=== PATIENT | female | born 1990 | race Asian ===

== ENCOUNTER 2016-09-02 06:20 | Day surgery (SDC) | payer BC ==
[~2016-09-02] VITALS: Ht 165.1 cm; Wt 61.2 kg
[2016-09-02] VITALS (11 sets, daily range): BP systolic 90–109; BP diastolic 50–68
[~2016-09-02 06:20] MED LIST: AMITIZA24 MCG ORAL
[2016-09-02] MEDS ORDERED: LR 1000ml 1,000 ML IV SCH (07:25)
--- NOTE | 2016-09-02 08:07 | Pre-Procedure Note/Attestation ---
Pre-Procedure Note/Attestation Complete Prior to Procedure Planned Procedure: not applicable Procedure Narrative: esophagogastroduodenoscopy colon , Indications for Procedure Pre-Operative Diagnosis: abd pain Attestation I attest that I discussed the nature of the procedure; its benefits; risks and complications; and alternatives (and the risks and benefits of such alternatives ), prior to the procedure, with the patient (or the patient's legal roofing sales representative). I attest that, if there was a reasonable possibility of needing a blood transfusion, the patient (or the patient's legal roofing sales representative) was given the [facility] standardized written summary, pursuant to the [place] Blood Safety Act ([place] Health and Safety Code # 1645, as amended). I attest that I re-evaluated the patient just prior to the surgery and that there has been no change in the patient's H&P, except as documented below: JAMEL JALLOH Sep 02, 2016 08:07
--- NOTE | 2016-09-02 08:08 | Short Stay Surgery H&P ---
History of Present Illness History of Present Illness Chief Complaint see H&P HPI Stacy Fry is a 25 year old female who was admitted on for Abdominal Pain Patient History Allergies: Coded Allergies: Dust (Verified Allergy, Mild, 09/02/16) SNEEZING Uncoded Allergies: CATS (Allergy, Mild, 09/02/16) ITCHING,SNEEZING PAST MEDICAL HISTORY: Past Surgeries: Social History: Medication History Scheduled Lubiprostone (Amitiza*), 24 MCG ORAL BID, (Reported) Physical Exam Vital Signs Last Vital Signs Date Time Temp Pulse Resp B/P Pulse Ox O2 Delivery O2 Flow Rate FiO2 09/02/16 07:15 97.3 46 20 103/62 99 Room Air Labs Laboratory Tests Test 09/02/16 06:40 Urine HCG, Qualitative Negative Plan Attestation Are the patient's medical conditions optimized for surgery? JAMEL JALLOH Sep 02, 2016 08:08
--- NOTE | 2016-09-02 09:00 | Immediate Post-Op Evaluation ---
Immediate Post-Op Evalulation Immediate Post-Op Evalulation Procedure: EGD/Colonoscopy Date of Evaluation: Sep 02, 2016 Time of Evaluation: 08:50 IV Fluids: 500 Blood Pressure Systolic: 120 Blood Pressure Diastolic: 50 Pulse Rate: 58 Respiratory Rate: 14 O2 Sat by Pulse Oximetry: 100 Temperature (Fahrenheit): 97.4 Nausea: No Vomiting: No Complications none Patient Status: awake, reacts, patent Hydration Status: adequate - none Drug: none BRAD COTTO CRNA Sep 02, 2016 09:00
--- NOTE | 2016-09-02 09:01 | Anethesia Preoperative Eval ---
Anesthesia Pre-op PMH/ROS General Date of Evaluation: Sep 02, 2016 Time of Evaluation: 08:00 Anesthesiologist: tony ASA Score: ASA 2 Mallampati Score Class I : Soft palate, uvula, fauces, pillars visible Class II: Soft palate, uvula, fauces visible Class III: Soft palate, base of uvula visible Class IV: Only hard plate visible Mallampati Classification: Class II Surgeon: tenisha Diagnosis: abd pain Surgical Procedure: EGD/Colonoscopy Anesthesia History: none Social History: drug use Family History: no anesthesia problems Allergies: Coded Allergies: Dust (Verified Allergy, Mild, 09/02/16) SNEEZING Uncoded Allergies: CATS (Allergy, Mild, 09/02/16) ITCHING,SNEEZING Medications: see eMAR Past Medical History Cardiovascular: Denies: CAD, HTN, MO, arrhythmia, other, valve dz Pulmonary: Denies: COPD, RYAN, asthma, other Gastrointestinal/Genitourinary: Reports: GERD Neurologic/Psychiatric: Denies: CVA, TIA, dementia, depression/anxiety, other Endocrine: Denies: DM, hypothyroidism, other, steroids HEENT: Denies: CAMPO (L), CAMPO (R), cataract (L), cataract (R), glaucoma, other Hematology/Immune: Denies: DVT, anemia, bleeding disorder, other Musculoskeletal/Integumentary: Denies: DDD, DJD, OA, RA, edema, other PSxH Narrative: lap appy Anesthesia Pre-op Phys. Exam Physician Exam Last Vital Signs Date Time Temp Pulse Resp B/P Pulse Ox O2 Delivery O2 Flow Rate FiO2 09/02/16 07:15 97.3 46 20 103/62 99 Room Air Constitutional: NAD Neurologic: CN 2-12 intact Cardiovascular: RRR Respiratory: CTA Gastrointestinal: S/NT/ND Airway Exam Mallampati Score: Class II MO: full ROM: full Dentures: no lower, no upper Anesthesia Pre-op A/P Labs Urine Test Test 09/02/16 06:40 Urine HCG, Qualitative Negative Studies Pre-op Studies: EKG - sr Risk Assessment & Plan Plan: mac Status Change Before Surgery: No Pre-Antibiotics Drug: none RODRILLION,BRAD SCIENTIFIC RECRUITER Sep 02, 2016 09:01
--- NOTE | 2016-09-02 09:06 | Endoscopy Procedure Note ---
Endoscopy Procedure Note Indication for Procedure: abd pain Procedures Performed: EGD, colonoscopy Operative Findings/Diagnosis: nl Specimen: yes Pt Tolerated Procedure Well: Yes Estimated Blood Loss: none Anesthesiologist: see report Medication Given: see anesthesia record Implant(s) used?: No 50 yrs or older w/o bx or poly: Not Applicable 10yrs. F/U not recommended: Not Applicable If not recommended, why?: JAMEL JALLOH Sep 02, 2016 09:06
--- NOTE | 2016-09-02 09:07 | Brief Operative Note ---
Immediate Post Operative Note Operative Note Chief Complaint: abd pain Pre-op Diagnosis: abd pain Post-op Diagnosis: nl Surgeon: tenisha Anesthesiologist: see report Anesthesia: moderate sedation Specimen: yes Complications: none Condition: stable Estimated Blood Loss: none Drains: none Implant(s) used?: No JAMEL JALLOH Sep 02, 2016 09:07
--- NOTE | 2016-09-02 10:22 | 48 Hour Post Anesthesia Eval ---
Post Anesthesia Evaluation Procedure: EGD/Colonoscopy Date of Evaluation: Sep 02, 2016 Time of Evaluation: 10:21 Blood Pressure Systolic: 90 0: 50 Pulse Rate: 65 Airway: patent Nausea: No Vomiting: No Hydration Status: adequate Mental Status/LOC: patient returned to baseline Post-Anesthesia Complications: none Follow-up care needed: N/A BRAD COTTO CRNA Sep 02, 2016 10:22
--- NOTE | 2016-09-02 11:15 | Operative Note - Dictated ---
DATE OF OPERATION: 09/02/2016 GASTROLOGY PROCEDURE REPORT PROCEDURE: Upper gastric colonoscopy with biopsy as well as colonoscopy with biopsy. SURGEON: Heri Flowers M.D. ANESTHESIA: Please see the separate anesthesiologist notes for details. PRE-ENDOSCOPIC DIAGNOSIS: Abdominal pain, bloating. POST-ENDOSCOPIC DIAGNOSIS: 1. Normal upper and lower endoscopy. 2. Status post random biopsies of the stomach, duodenum, right colon, and left colon. PROCEDURE: The procedure, its risks, indications, alternatives, and possible complications were explained to the patient and informed consent was obtained. The patient was then sedated in the left lateral decubitus position. A diagnostic upper endoscope was introduced through the oropharynx and advanced to the duodenum. The endoscope was then gradually withdrawn. The mucosa examined carefully. Examination of the upper gastric mucosa did not reveal any abnormalities. Biopsies of the antrum and duodenum were sent to pathology for review. The rectal exam was done. The colonoscope was introduced into the rectum and advanced to the terminal ileum. The terminal ileum mucosa was normal. The colonic mucosa was also normal. Random biopsy of the right colon and left colon were sent to pathology for review. The colonoscope was removed. The patient was sent to recovery in good condition. COMPLICATIONS: None. ASSESSMENT: There are no abnormalities by visual inspection on this patient to explain her symptoms. However, biopsies will be evaluated to rule out microscopic evidence of disease such as Helicobacter pylori, small bowel mucosal atrophy, or microscopic colitis. The patient was then be counseled accordingly as an outpatient. RECOMMENDATIONS: 1. Resume oral diet. 2. Continue current medications. 3. Outpatient follow up for biopsy review. Heri Flowers M.D. DR: LEIGH ANN JOB#: [id number] CC: Heri Flowers M.D.; Fax#: [phone]
== END 2016-09-02 10:20 | disposition home or self-care (01) ==
LOC: GAS 06:20
DX: R10.9 Unspecified abdominal pain (principal); R14.0 Abdominal distension (gaseous); R14.3 Flatulence; K29.50 Unspecified chronic gastritis without bleeding; K21.9 Gastro-esophageal reflux disease without esophagitis; F41.9 Anxiety disorder, unspecified; E55.9 Vitamin D deficiency, unspecified
CPT/HCPCS: 81025; 94003; 94150